=== PATIENT | male | born 1975 | race Caucasian/White ===

== ENCOUNTER 2021-03-14 19:36 | Observation (INO) | payer BC, OTHER ==
[2021-03-14 20:13] VITALS: BMI 35.6
[2021-03-14] MEDS ORDERED: KETOROLAC TROMETHAMINE 15 MG/ML VIAL IVPUSH ONE (20:41)
[2021-03-14] MEDS ORDERED: LACTATED RINGERS SOLUTION 1000 ML INFUS.BAG IV ONE (20:41)
[2021-03-14] MEDS ORDERED: ONDANSETRON 4 MG/2 ML VIAL IVPUSH ONE (20:41)
[2021-03-14] MEDS ORDERED: ONDANSETRON 4 MG/2 ML VIAL ONE (21:03)
[2021-03-14 21:27] LABS: BASO % 0.4 % (0-2.0); EOS % 1.6 % (0-4.5); HEMATOCRIT 44.2 % (35.4-49); HEMOGLOBIN 15.5 GM/dL (11.7-16.9); LYMPH % 27.5 % (8-40); MCH 30.6 pg (25.7-33.7); MCHC 35.1 g/dl (32.0-35.9); MEAN CELL VOLUME 87.1 fl (80-96); MONO % 5.1 % (3.8-10.2); NEUT % 65.4 % (42.8-82.8); PLATELET COUNT 277 10^3/uL (134-434); RBC 5.08 M/mm3 (4.00-5.60); RDW 13.5 % (11.9-15.9); WHITE BLOOD COUNT 8.4 K/mm3 (4.0-10.0)
[2021-03-14 22:04] LABS: CALCIUM 9.2 mg/dL (8.5-10.1)
[2021-03-14 22:05] LABS: ALBUMIN 4.1 g/dl (3.4-5.0); BLOOD UREA NITROGEN 22.4 mg/dL (7-18)
[2021-03-14 22:08] LABS: CREATININE 1.2 mg/dL (0.55-1.3)
[2021-03-14 22:09] LABS: TOT PROT 8.1 g/dl (6.4-8.2)
[2021-03-14 22:10] LABS: BILIRUBIN,TOTAL 0.5 mg/dL (0.2-1)
[2021-03-14] MEDS ORDERED: morphine CARPU-JECT 4 MG/1 ML DISP.SYRIN IVPUSH ONE (23:04)
[2021-03-14] MEDS ORDERED: KETOROLAC TROMETHAMINE 30 MG/1 ML VIAL IVPUSH ONE (23:06)
[2021-03-14] MEDS ORDERED: KETOROLAC TROMETHAMINE 30 MG/1 ML VIAL ONE (23:07)
[2021-03-14 23:14] LABS: EPI CELLS 5 /uL (0-25.1); HYALINE CASTS 2 /uL (0-3.1); PH,URINE 5.5 (5.0-8.0); URINE APPEARANCE TURBID; URINE BACTERIA 0 /uL (0-1359); URINE BILIRUBIN 1+ (NEGATIVE); URINE COLOR ORANGE; URINE GLUCOSE (UA) NEGATIVE (NEGATIVE); URINE KETONE NEGATIVE (NEGATIVE); URINE LEUK ESTERASE 1+ (NEGATIVE); URINE NITRITE NEGATIVE (NEGATIVE); URINE PROTEIN 2+ (NEGATIVE); URINE RBC 33606 /uL (0-23.9); URINE UROBILINOGEN 0.2 mg/dL (0.2-1.0); URINE WBC 96 /uL (0-25.8)
[2021-03-15] MEDS ORDERED: morphine CARPU-JECT 2 MG/1 ML DISP.SYRIN IVPUSH PRN (00:03)
[2021-03-15] MEDS ORDERED: morphine CARPU-JECT 2 MG/1 ML DISP.SYRIN IVPUSH ONE (00:12)
[2021-03-15] MEDS ORDERED: CEFTRIAXONE 1 GM in DEXTROSE 5%-WATER - 50 ML IVPB ONE (00:59)
[2021-03-15] MEDS ORDERED: CEFTRIAXONE 1 GM/50 ML BAG ONE (01:27)
[2021-03-15] MEDS ORDERED: morphine SULFATE 4 MG/ML VIAL ONE (01:27)
[2021-03-15] MEDS ORDERED: ACETAMINOPHEN 325 MG TABLET (FP) PO PRN (02:58)
[2021-03-15] MEDS ORDERED: KETOROLAC TROMETHAMINE 15 MG/ML VIAL IVPUSH PRN (02:58)
[2021-03-15] MEDS ORDERED: morphine SULFATE 4 MG/ML VIAL IVPUSH PRN (02:58)
[2021-03-15] MEDS ORDERED: ONDANSETRON 4 MG/2 ML VIAL IVPUSH PRN (03:00)
[2021-03-15] MEDS: SODIUM CHLORIDE 1,000 ML IV SCH ×2 (04:54→10:01)
[2021-03-15] MEDS ORDERED: TAMSULOSIN HCL 0.4 MG CAP PO SCH (08:30)
[2021-03-15 09:30] LABS: HEMATOCRIT 41.7 % (35.4-49); HEMOGLOBIN 14.5 GM/dL (11.7-16.9); MCH 30.2 pg (25.7-33.7); MCHC 34.6 g/dl (32.0-35.9); MEAN CELL VOLUME 87.1 fl (80-96); MEAN PLT VOLUME 8.2 fl (7.5-11.1); PLATELET COUNT 184 10^3/uL (134-434); RBC 4.79 M/mm3 (4.00-5.60); RDW 13.1 % (11.9-15.9); WHITE BLOOD COUNT 6.8 K/mm3 (4.0-10.0)
[2021-03-15 09:52] LABS: CALCIUM 8.5 mg/dL (8.5-10.1)
[2021-03-15 09:53] LABS: BLOOD UREA NITROGEN 19.3 mg/dL (7-18); MAGNESIUM 2.4 mg/dL (1.8-2.4)
[2021-03-15 09:56] LABS: PHOSPHOROUS 3.9 mg/dL (2.5-4.9)
[2021-03-15 15:13] VITALS: BP 113/56; PULSE 83; TEMP 98
== END 2021-03-15 16:41 | disposition home or self-care (01) ==
LOC: JER 19:36 → JERBED 23:30 → INTOOBSV 23:30 → J5S 03-15 04:46
PROVIDERS: ADMIT Internal Medicine; ATTEND Internal Medicine
PROC: 3E03329 Introduction of Other Anti-infective into Peripheral Vein, Percutaneous Approach (ICD-10-PCS; principal; 2021-03-14)
PROC: 3E0333Z Introduction of Anti-inflammatory into Peripheral Vein, Percutaneous Approach (ICD-10-PCS; 2021-03-14)
PROC: 3E033NZ Introduction of Analgesics, Hypnotics, Sedatives into Peripheral Vein, Percutaneous Approach (ICD-10-PCS; 2021-03-14)
PROC: 3E033GC Introduction of Other Therapeutic Substance into Peripheral Vein, Percutaneous Approach (ICD-10-PCS; 2021-03-14)
PROC: 3E0337Z Introduction of Electrolytic and Water Balance Substance into Peripheral Vein, Percutaneous Approach (ICD-10-PCS; 2021-03-14)
DX: N13.2 Hydronephrosis with renal and ureteral calculous obstruction (principal); S73.102A Unspecified sprain of left hip, initial encounter; M54.59 Other low back pain; R10.31 Right lower quadrant pain; E66.9 Obesity, unspecified; R11.2 Nausea with vomiting, unspecified; Z68.35 Body mass index [BMI] 35.0-35.9, adult; W18.39XA Other fall on same level, initial encounter; Y93.89 Activity, other specified; Y92.89 Other specified places as the place of occurrence of the external cause
CPT/HCPCS: 36415; 74176-TC; 80048; 80053; 81003; 83690; 83735; 84100; 85025; 85027; 93005; 93010; 99285-25; C9803; G0378; U0003; U0005

== ENCOUNTER 2021-03-24 01:34 | Inpatient (IN) | payer BC ==
[2021-03-24 02:00] VITALS: BMI 35.4
[2021-03-24] MEDS ORDERED: morphine SULFATE 4 MG/ML VIAL IVPUSH ONE (02:37)
[2021-03-24] MEDS ORDERED: ACETAMINOPHEN 1000 MG/100 ML VIAL IVPB ONE (02:37)
[2021-03-24] MEDS ORDERED: LACTATED RINGERS SOLUTION 1000 ML INFUS.BAG IV ONE (02:37)
[2021-03-24] MEDS ORDERED: ACETAMINOPHEN INJECTION 100 ML IVPB ONE (02:54)
[2021-03-24 03:34] LABS: BASO % 0.6 % (0-2.0); EOS % 3.3 % (0-4.5); HEMATOCRIT 43.6 % (35.4-49); HEMOGLOBIN 15.2 GM/dL (11.7-16.9); LYMPH % 35.1 % (8-40); MCH 30.2 pg (25.7-33.7); MCHC 34.8 g/dl (32.0-35.9); MEAN CELL VOLUME 86.6 fl (80-96); MEAN PLT VOLUME 7.6 fl (7.5-11.1); MONO % 6.9 % (3.8-10.2); NEUT % 54.1 % (42.8-82.8); PLATELET COUNT 236 10^3/uL (134-434); RBC 5.04 M/mm3 (4.00-5.60); RDW 13.4 % (11.9-15.9)
[2021-03-24 03:44] LABS: INR 0.98 (0.83-1.09)
[2021-03-24 03:57] LABS: CHLORIDE 103 mmol/L (98-107); SODIUM 139 mmol/L (136-145)
[2021-03-24 03:59] LABS: BLOOD UREA NITROGEN 24.1 mg/dL (7-18); CALCIUM 8.8 mg/dL (8.5-10.1)
[2021-03-24 04:00] LABS: ALBUMIN 4.1 g/dl (3.4-5.0); ANION GAP 4 MMOL/L (8-16); CO2 31 mmol/L (21-32); GLUCOSE,RANDOM 107 mg/dL (74-106)
[2021-03-24 04:03] LABS: CREATININE 1.3 mg/dL (0.55-1.3); SGOT/AST 25 U/L (15-37); SGPT/ALT 40 U/L (13-61)
[2021-03-24 04:04] LABS: BILIRUBIN,TOTAL 0.5 mg/dL (0.2-1); TOT PROT 7.4 g/dl (6.4-8.2)
[2021-03-24 04:05] LABS: ALK PHOS 70 U/L (45-117)
[2021-03-24] MEDS ORDERED: morphine CARPU-JECT 4 MG/1 ML DISP.SYRIN IVPUSH ONE (04:50)
[2021-03-24] MEDS ORDERED: KETOROLAC TROMETHAMINE 30 MG/1 ML VIAL IVPUSH ONE (04:53)
[2021-03-24] MEDS ORDERED: KETOROLAC TROMETHAMINE 30 MG/1 ML VIAL ONE ×2 (04:55→10:31)
[2021-03-24 06:11] LABS: EPI CELLS 3 /uL (0-25.1); HYALINE CASTS 0 /uL (0-3.1); URINE APPEARANCE CLEAR; URINE BACTERIA 4 /uL (0-1359); URINE BILIRUBIN NEGATIVE (NEGATIVE); URINE COLOR YELLOW; URINE GLUCOSE (UA) NEGATIVE (NEGATIVE); URINE KETONE NEGATIVE (NEGATIVE); URINE LEUK ESTERASE NEGATIVE (NEGATIVE); URINE NITRITE NEGATIVE (NEGATIVE); URINE PROTEIN NEGATIVE (NEGATIVE); URINE RBC 6287 /uL (0-23.9); URINE UROBILINOGEN 0.2 mg/dL (0.2-1.0); URINE WBC 15 /uL (0-25.8)
[2021-03-24] MEDS ORDERED: KETOROLAC TROMETHAMINE 15 MG/ML VIAL IVPUSH PRN (08:50)
[2021-03-24] MEDS ORDERED: TAMSULOSIN HCL 0.4 MG CAP PO ONE (08:52)
[2021-03-24] MEDS ORDERED: oxyCODONE HCL 5 MG TABLET PO PRN (09:00)
[2021-03-24] MEDS ORDERED: LACTATED RINGERS SOLUTION 1,000 ML/1,000 ML INFUS.BAG IV SCH (09:00)
[2021-03-24] MEDS ORDERED: ACETAMINOPHEN 325 MG TABLET (FP) PO PRN (09:00)
[2021-03-24] MEDS ORDERED: PANTOPRAZOLE 40 MG TABLET PO SCH (10:00)
[2021-03-24] MEDS ORDERED: TAMSULOSIN HCL 0.4 MG CAP ONE (10:10)
[2021-03-24] MEDS ORDERED: PANTOPRAZOLE 40 MG TABLET ONE (10:11)
[2021-03-24] MEDS ORDERED: HEPARIN NA (PORCINE) 5,000 UNITS/ML 1ML VIAL SQ SCH (14:00)
[2021-03-24] MEDS ORDERED: HEPARIN NA (PORCINE) 5,000 UNITS/ML 1ML VIAL ONE (16:23)
[2021-03-24 20:39] VITALS: BP 122/62; PULSE 72; TEMP 97
== END 2021-03-24 20:58 | disposition left against medical advice (07) | DRG 694 ==
LOC: JER 01:34 → JERBED 05:57
DX: N13.2 Hydronephrosis with renal and ureteral calculous obstruction (principal); J98.11 Atelectasis; D17.79 Benign lipomatous neoplasm of other sites; K57.90 Diverticulosis of intestine, part unspecified, without perforation or abscess without bleeding
CPT/HCPCS: 36415; 71046-TC-FY; 74176-TC; 80053; 81003; 82550; 82553; 84484; 85025; 85610; 85730; 86850; 86900; 86901; 87086; 93005; 93010; 99285-25; C9803; J0131; J1644; U0003; U0005

== ENCOUNTER 2021-04-17 04:35 | Day surgery (SDC) | payer BC ==
[2021-04-17] MEDS ORDERED: PROPOFOL 20 ML ONE ×2 (12:48)
[2021-04-17] MEDS ORDERED: MIDAZOLAM HCL 2 MG/2 ML SINGLE DOSE VIAL ONE (12:48)
[2021-04-17] MEDS ORDERED: GLYCOPYRROLATE 0.2 MG/1 ML VIAL ONE (12:49)
[2021-04-17] MEDS ORDERED: ceFAZolin SODIUM 1 GM VIAL ONE (12:50)
[2021-04-17] MEDS ORDERED: SODIUM CHLORIDE 0.9% P/F 10 ML VIAL IJ ONE (12:50)
[2021-04-17] MEDS ORDERED: LIDOCAINE HCL/PF 2% SDV 5ML VIAL ONE (13:06)
[2021-04-17] MEDS ORDERED: ceFAZolin SODIUM 1 GM VIAL IVPB ONE (13:08)
[2021-04-17] MEDS ORDERED: KETOROLAC TROMETHAMINE 30 MG/1 ML VIAL ONE (13:13)
[2021-04-17] MEDS ORDERED: DEXAMETHASONE SOD PHOSPHATE 4 MG/1 ML VIAL ONE (13:13)
[2021-04-17] MEDS ORDERED: LIDOCAINE HCL 2% JELLY 10 ML CARTRIDGE ONE (13:23)
[2021-04-17] MEDS ORDERED: IOHEXOL 300 MG/ML INFUS..BTL IJ ONE (13:40)
[2021-04-17] MEDS ORDERED: LIDOCAINE HCL 2% JELLY 10 ML CARTRIDGE TP ONE (13:40)
[2021-04-17] MEDS ORDERED: oxyCODONE HCL 5 MG TABLET PO PRN (13:49)
[2021-04-17] MEDS ORDERED: ONDANSETRON 4 MG/2 ML VIAL IVPUSH PRN (13:49)
[2021-04-17] MEDS ORDERED: PROMETHAZINE HCL 25 MG/1 ML VIAL IVPUSH PRN (13:49)
[2021-04-17] MEDS ORDERED: LACTATED RINGERS SOLUTION 1,000 ML IV SCH (14:00)
[2021-04-17 14:51] VITALS: TEMP 98
[2021-04-17 16:53] VITALS: BP 145/73; PULSE 64
== END 2021-04-17 16:45 | disposition home or self-care (01) ==
LOC: JASU-SURG 04:35
PROVIDERS: ATTEND Urology
PROC: 0TC68ZZ Extirpation of Matter from Right Ureter, Via Natural or Artificial Opening Endoscopic (ICD-10-PCS; principal; 2021-04-17 12:30)
PROC: 0T768DZ Dilation of Right Ureter with Intraluminal Device, Via Natural or Artificial Opening Endoscopic (ICD-10-PCS; 2021-04-17 12:30)
PROC: BT1DYZZ Fluoroscopy of Right Kidney, Ureter and Bladder using Other Contrast (ICD-10-PCS; 2021-04-17 12:30)
DX: N20.1 Calculus of ureter (principal)
CPT/HCPCS: 76000-TC-FY; 94760